=== PATIENT | male | born 1980 | race Caucasian/White ===

== ENCOUNTER 2018-10-29 19:56 | Emergency (ER) | payer BC ==
[~2018-10-29] VITALS: Ht 188 cm; Wt 115.7 kg
--- NOTE | 2018-10-29 20:18 | NUR ---
Patient came in to the ER with complain of pain on left thigh to ankel area. Per patient he was doing [employer] and he landed on his foot the wrong way and heard a popping sound from his left LLE. Patient reported icing the affected area and had taken some Advil for pain with some help. Patient was concern for any sprain or fracture. Patient reported left mid thigh to ankle area slightly swollen and feels some numbnesss and tenderness on left foot. Patient able to walk but slightly limping using his left foot. No circulatory concern on affected area. Came in here to have further evaluation. Patient AAOx4. Speak full sentences. In no respiratory distress. Denies any SOB/CP. No cardiovascular concern. No /GI concern. Bed in low and lock position. Fall precaution per protocol.
--- NOTE | 2018-10-29 20:21 | NUR ---
CHARLIE OLVERA at [facility] for MSE.
--- NOTE | 2018-10-29 21:01 | NUR ---
Cast to LLE applied per ER MD order.
--- NOTE | 2018-10-29 21:02 | NUR ---
CHARLIE OLVERA at bedside.
--- NOTE | 2018-10-29 21:41 | NUR ---
Patient discharged to home in stable conditon. Written and verbal after care instructions given. Patient verbalizes understanding of instructions. Patient ambulated with stable gait using crutches. CMS intact.
[2018-10-29 21:44] VITALS: BP 135/80
== END 2018-10-29 21:45 | disposition home or self-care (01) ==
LOC: ER 20:00
DX: M76.62 Achilles tendinitis, left leg (principal); F12.10 Cannabis abuse, uncomplicated
CPT/HCPCS: A4663